=== PATIENT | female | born 1975 | race Caucasian/White ===

== ENCOUNTER → 2017-11-13 | Outpatient (CLI) | payer BC, OTHER ==
[~2017-11-13] MED LIST: ALBUTEROL2.5 MG/0.5 INH; APAP500 PO; ATENOLOL 50MG T50 M1 PO; BIOTIN1 MG PO; FLEXERIL PO; FLONASE 0.05%50 MCG NASAL; IRON325 PO; LIDOCAINE 22 %/30 GM MM; OMEPRAZOLE40 MG PO; PROAIR HFA8.5 GM; SUBOXONE 8 MG-1 EAC3 SL; TRIAMCINOLONE A80 G2 TOP; UNICOMPLEX M TA1 TA1 PO; VITAMIN C100 MG PO; ZANAFLEX4 MG PO; [UNRECOGNIZED DRUG - OTHER]
== END ==
LOC: ULTRA 07:37
DX: I71.4 Abdominal aortic aneurysm, without rupture (principal)

== ENCOUNTER → 2019-03-25 | Outpatient (CLI) | payer BC, OTHER | LOC: CAT 16:33 | DX: R51 Headache (principal); R42 Dizziness and giddiness ==

== ENCOUNTER → 2019-05-05 | Outpatient (CLI) | payer BC, OTHER | LOC: RAD 10:48 | DX: M48.02 Spinal stenosis, cervical region (principal); G56.91 Unspecified mononeuropathy of right upper limb; M50.323 Other cervical disc degeneration at C6-C7 level; M25.78 Osteophyte, vertebrae ==